=== PATIENT | female | born 1970 | race Caucasian/White ===

== ENCOUNTER 2020-04-04 22:26 | Emergency (ER) | payer SELFPAY ==
--- NOTE | ~2020-04-04 | XR_ITS ---
XR chest 1V portable DATE: 04/04/2020 23:23 INDICATION: Cough, shortness of breath. History of Covid. TECHNIQUE: Portable upright AP chest on 04/04/2020 at 2318 hours COMPARISON: None FINDINGS: Bilateral hyperinflation. Occasional areas of mild discoid atelectasis or scarring are note d in the mid and lower lung zones but no pulmonary consolidation, pleural effusion, pulmonary vascula r congestion or pneumothorax is detected. Normal heart size. No hilar or mediastinal enlargement. Diffuse osteopenia. Mild thoracic scoliosis. IMPRESSION: Bilateral hyperinflation and scattered areas of mild discoid atelectasis or scarring Reviewed, dictated and finalized at location [facility] [employer] IMPRESSION: Bilateral hyperinflation and scattered areas of mild discoid atelec tasis or scarring
[2020-04-04 22:30] VITALS: BP 109/72; PULSE 96; RESP 18; TEMP 37.6; O2SAT 96
--- NOTE | 2020-04-04 22:36 | ECG_ITS ---
Measurements Intervals [place] Rate: 92 P: 83 FL: 129 QRS: 34 QRSD: 78 T: 65 QT: 362 QTc: 448 Interpretive Statements SINUS RHYTHM INCOMPLETE RIGHT BUNDLE BRANCH BLOCK BASELINE ARTIFACT- V4-V6 BORDERLINE ECG Electronically Signed On 04-06-2020 12:15:01 [employer] by Moo Jane D.O.
--- NOTE | 2020-04-04 22:45 | ED.GENADULT ---
HPI - General Adult General Chief complaint: Allergic Reaction Stated complaint: medication reaction Time Seen by Provider: 04/04/20 22:35 Source: patient Mode of arrival: ambulatory Limitations: no limitations History of Present Illness HPI narrative: Patient is a 50-year-old female who presents noting urticaria and itching nausea and vomiting that began over the course of the last 2 days patient has been on cefdinir for pneumonia prescribed by primary care patient had had COVID-19 was told that she has pneumonia that is likely residual from her COVID-19 was placed on antibiotics completed the [facility] took 6 days of her cefdinir and now is experiencing allergic reaction-like symptoms patient denies fever patient denies similar occurrence in the past patient has many allergies to antibiotics patient notes that she has had minimal upper respiratory symptoms patient took Zofran with minimal improvement with the emesis. Patient has not taken anything for allergic reaction Related Data Allergies Allergy/AdvReac Type Severity Reaction Status Date / Time amoxicillin Allergy Vomiting Verified 04/04/20 23:12 cefdinir Allergy Vomiting Verified 04/04/20 23:12 clavulanic acid Allergy Vomiting Verified 04/04/20 23:12 [From Augmentin] clindamycin Allergy Rash Verified 04/04/20 23:12 codeine Allergy Vomiting Verified 04/04/20 23:12 dicyclomine Allergy Vomiting Verified 04/04/20 23:12 fluoxetine Allergy Vomiting Verified 04/04/20 23:12 metronidazole Allergy Itching Verified 04/04/20 23:12 Penicillins Allergy Vomiting Verified 04/04/20 23:12 Review of Systems Review of Systems: All systems reviewed & are unremarkable except as noted in HPI and below PMFSH Past Medical History Medical History (Updated 04/04/20 @ 22:47 by Errol Garcia PA-C) Anxiety Social History Social History Gender identity (if verbalized by the patient): Female Exam Narrative: Exam Narrative: GENERAL: Well-appearing, well-nourished, and in no acute distress. HEAD: Normocephalic, atraumatic. EYES: PERRLA and EOMI. ENT: Nares clear, no rhinorrhea or epistaxis. Mucous membranes moist. Oropharynx without tonsillar hypertrophy exudate or other lesions. No angioedema in the oropharynx NECK: Supple. No adenopathy or masses. No stridor CHEST: Clear to auscultation. No respiratory distress. No wheezes rales or rhonchi HEART: Regular rate and rhythm. No murmur heard. Normal peripheral pulses. ABDOMEN: Soft, nontender, nondistended EXTREMITIES: Normal range of motion. No edema. SKIN: Warm, dry, patient with macular rash on the extremities NEURO: No focal deficits. Alert and oriented x3. Cranial nerves II through XII grossly intact. PSYCH: Normal mood and affect. Course Course Emergency Course: Patient in the room at this time no distress much improved hydrated tolerating p.o. intake felt appropriate for outpatient reevaluation vital signs and ABCs intact and stable patient advised to discontinue her antibiotic no pneumonia seen on chest x-ray no high risk changes in the blood work. Vital Signs Vital signs: Vital Signs Temperature 99.7 F H 04/04/20 22:30 Pulse Rate 96 04/04/20 22:30 Respiratory Rate 18 04/04/20 22:30 Blood Pressure 109/72 04/04/20 22:30 Pulse Oximetry 96 04/04/20 22:30 Temperature 99.7 F H 04/04/20 22:30 Pulse Rate 96 04/04/20 22:30 Respiratory Rate 18 04/04/20 22:30 Blood Pressure 109/72 04/04/20 22:30 Pulse Oximetry 96 04/04/20 22:30 Medical Decision Making MDM Narrative Medical decision making narrative: Patient presented with allergic reaction was treated felt appropriate for outpatient reevaluation will be discharged at this time with planned outpatient follow-up with primary care given reasons to return Vital Signs Vital Signs: Vital Signs Temperature 99.7 F H 04/04/20 22:30 Pulse Rate 96 04/04/20 22:30 Respiratory Rate 18
[2020-04-04 23:11] LABS: Lipase 84 U/L (23-300)
[2020-04-04] MEDS: FAMOTIDINE 20 MG/2 ML VIAL IV PUSH (23:12)
[2020-04-04] MEDS: DEXAMETHASONE SOD PHOS INJ 4 MG/ML VIAL 6 MG IV PUSH (23:12)
[2020-04-04] MEDS: SODIUM CHLORIDE 0.9% IV 1,000 ML 999 ML IV CONT (23:12)
[2020-04-04] MEDS: diphenhydrAMINE HCl INJ 50 MG/ML VIAL 25 MG IV PUSH (23:13)
[2020-04-04 23:22] LABS: Basophils Percent Auto 0.2 % (0.2-1.2); Eosinophils Absolute Auto 0.4 K/mm3 (0-0.3); Eosinophils Percent Auto 3.4 % (0-4.4); Hematocrit 37.3 % (37.0-47.0); Hemoglobin 12.1 g/dL (12.0-15.0); Immature Granulocyte Absolute 0.07 K/mm3 (0.00-0.031); Immature Granulocyte Percent A 0.6 % (0-0.5); Lymphocytes Absolute Auto 1.75 K/mm3 (0.9-3.2); Mean Corpuscular HGB Conc 32.4 g/dl (32-36); Mean Corpuscular Hemoglobin 28.5 pg (26-34); Mean Corpuscular Volume 87.8 fl (80-100); Mean Platelet Volume 9.4 fl (7.4-10.4); Monocytes Absolute Auto 0.9 K/mm3 (0.1-0.6); Monocytes Percent Auto 8.1 % (2.6-8.5); Neutrophils Absolute Auto 7.8 K/mm3 (1.3-6.7); Neutrophils Percent Auto 71.7 % (45.5-73.1); Platelet Count Result 272 k/mm3 (150-375); Red Blood Count 4.25 M/mm3 (4.2-5.4); Red Cell Distribution Width 13.6 % (11.5-14.5); White Blood Count 10.9 K/mm3 (4.5-10.0)
[2020-04-04 23:29] LABS: Alanine Aminotransferase 16 U/L (4-35); Albumin Level 3.9 g/dL (3.5-5.1); Alkaline Phosphatase 98 U/L (38-126); Anion Gap 5 mmol/L (8-16); Aspartate Amino Transferase 32 U/L (14-36); Bilirubin,Total 1.6 mg/dL (0.2-1.3); Blood Urea Nitrogen 12 mg/dL (7-17); Carbon Dioxide 26 mmol/L (22-30); Chloride 103 mmol/L (98-107); Estimated CRCL calculation 65 ml/min; Estimated Glomerular Filt Rate > 60; Glucose 120 mg/dL (65-105); Potassium 3.9 mmol/L (3.4-5.0); Sodium 134 mmol/L (137-145)
[2020-04-04] MEDS: PROCHLORPERAZINE EDISYLATE 10 MG/2 ML VIAL IV PUSH (23:51)
--- NOTE | 2020-04-05 00:30 | PC.NURSE ---
this RN to bedside to start 2nd liter of NS. patient refused. wants to go home. SL removed. monitors removed. states her is in the parking lot.
== END 2020-04-05 00:48 | disposition home or self-care (01) ==
PROVIDERS: Emergency Medicine Emergency Medical Services; Emergency Provider Emergency Medicine
DX: T78.40XA Allergy, unspecified, initial encounter (principal); F41.9 Anxiety disorder, unspecified
CPT/HCPCS: 36415; 71045; 80053; 83690; 85025; 93005; 96361; 96374; 96375; 99284; J0780; J1100; J1200; J7030